=== PATIENT | male | born 1995 | race Caucasian/White ===

== ENCOUNTER 2024-06-10 17:06 | Emergency (ER) | payer MEDICAID ==
[~2024-06-10] VITALS: Ht 167.6 cm; Wt 81.0 kg
[2024-06-10 17:34] LABS: COVID AG,FIA SOURCE NASAL SWAB
[2024-06-10 17:59] LABS: SARS-COV2 (COVID) ANTIGEN,FIA Negative (Negative)
[2024-06-10 18:00] LABS: INFLUENZA TYPE A NEGATIVE FOR TYPE A (NEGATIVE); INFLUENZA TYPE B NEGATIVE FOR TYPE B (NEGATIVE)
[2024-06-10 18:17] LABS: BASOPHILS % (AUTO) 0.2 % (0.0-2.0); EOSINOPHILS % (AUTO) 0.4 % (1.0-6.0); HEMOGLOBIN 17.3 g/dL (13.5-17.5); LYMPHOCYTES # (AUTO) 1.5 K/uL (1.0-4.8); MEAN CORPUSCULAR HGB CONC 34.5 G/dL (31.0-37.0); MEAN CORPUSCULAR VOLUME 93 fL (80-100); MONOCYTES # (AUTO) 1.3 K/uL (0.1-1.0); MONOCYTES % (AUTO) 9.8 % (2.0-9.0); NEUTROPHILS # (AUTO) 10.6 K/uL (1.8-7.7); NEUTROPHILS % (AUTO) 78.6 % (40.0-70.0); PLATELET COUNT (AUTO) 193 K/uL (150-450); RED CELL DISTRIBUTION WIDTH 12.9 % (11.5-14.5); WHITE BLOOD COUNT (AUTO) 13.4 K/uL (4.5-11.0)
[2024-06-10] MEDS: ONDANSETRON HCL 4 MG/2 ML VIAL IVP ONE (18:20)
[2024-06-10] MEDS: SODIUM CHLORIDE 0.9% 1,000 ML IV ONE (18:20)
[2024-06-10 18:21] LABS: CALCIUM, TOTAL 10.1 mg/dL (8.8-10.5); CREATININE 1.49 mg/dL (0.60-1.30); POTASSIUM 3.5 mmol/L (3.5-5.1)
[2024-06-10 18:27] LABS: ALBUMIN 4.7 g/dL (3.4-5.0); BILIRUBIN,DIRECT 0.3 mg/dL (0.00-0.20); BILIRUBIN,TOTAL 1.5 mg/dL (0.1-1.0); TOTAL PROTEIN, SERUM 8.7 g/dL (6.4-8.2)
[2024-06-10] MEDS: ALBUTEROL SULFATE HFA 90 MCG/PUFF 8 GM INHALER IH ONE (20:15)
[2024-06-10] MEDS: ACETAMINOPHEN 500 MG TABLET PO ONE (20:41)
[2024-06-10 22:45] VITALS: BP 130/74; PULSE 75; RESP 18; TEMP 98.1; O2SAT 100
[2024-06-10] MEDS ORDERED: BENZ-227 PO (22:46)
[2024-06-10] MEDS ORDERED: ONDA-104 PO (22:46)
[2024-06-10] MEDS: ONDANSETRON 4 MG TABLET PO ONE (23:19)
== END 2024-06-10 23:20 | disposition home or self-care (01) ==
LOC: EMS 17:06
DX: J06.9 Acute upper respiratory infection, unspecified (principal); E86.0 Dehydration; F12.90 Cannabis use, unspecified, uncomplicated; Z20.822 Contact with and (suspected) exposure to COVID-19
CPT/HCPCS: 99284; 96374; 71046; 96361; 87426; 80048; 80076; 83690; 85025; 87804; 36415; 94640; J2405; Q0162; J7030; J3535